=== PATIENT | female | born 1990 | race Caucasian/White ===

== ENCOUNTER 2020-12-23 15:54 | Emergency (ER) | payer SELFPAY ==
--- NOTE | ~2020-12-23 | US_ITS ---
EXAMINATION: US ABDOMEN LIMITED CLINICAL INFORMATION: Pain. COMPARISON: None TECHNIQUE: Real-time imaging of the right upper quadrant abdominal viscera. FINDINGS: PANCREAS: Normal. LIVER: Normal. The liver is normal in size. The liver contour is normal. Parenchymal echogenicity is normal. No focal hepatic lesion. There is no intrahepatic biliary duct dilatation seen. GALLBLADDER: Normal. The gallbladder is physiologically distended without evidence of stones, sludge, polyps, wall thickening or pericholecystic fluid. COMMON BILE DUCT: Normal in caliber measuring 0.2 cm in diameter. RIGHT KIDNEY: Normal. No hydronephrosis. No renal calculi or focal parenchymal lesions. The kidney measures 10 cm in maximum dimension. FREE FLUID: None. US/US abdomen limited IMPRESSION: Unremarkable right upper quadrant ultrasound. EXAMINATION: OBSTETRICAL ULTRASOUND, Limited CLINICAL INFORMATION: Second trimester evaluation pain. COMPARISON: None TECHNIQUE: Real time transabdominal imaging with color and M-mode Doppler. POSITION: Cephalic PLACENTA: Anterior without previa, grade 1, no abruption AMNIOTIC FLUID VOLUME: WITHIN NORMAL LIMITS MEASUREMENTS: biometric measurements are as follows: Biparietal Diameter: 5.39 cm (22 weeks 3 days) Occipital Frontal Diameter: 7.14 cm (23 weeks) Head Circumference: 19.46 cm (21 weeks 5 days) Abdominal Circumference: 17.2 cm (22 weeks 2 days) Femur Length: 3.91 cm (22 weeks 4 days) ESTIMATED WEIGHT: 488 grams which corresponds to an estimated gestational age of 22 weeks 2 days. Cervix appears normal with a length of 3.8 cm. Both ovaries appear unremarkable. IMPRESSION: 1. Single intrauterine gestation in cephalic position with anterior placenta. 2. No evidence for placental abruption.
--- NOTE | ~2020-12-23 | US_ITS ---
EXAMINATION: US ABDOMEN LIMITED CLINICAL INFORMATION: Pain. COMPARISON: None TECHNIQUE: Real-time imaging of the right upper quadrant abdominal viscera. FINDINGS: PANCREAS: Normal. LIVER: Normal. The liver is normal in size. The liver contour is normal. Parenchymal echogenicity is normal. No focal hepatic lesion. There is no intrahepatic biliary duct dilatation seen. GALLBLADDER: Normal. The gallbladder is physiologically distended without evidence of stones, sludge, polyps, wall thickening or pericholecystic fluid. COMMON BILE DUCT: Normal in caliber measuring 0.2 cm in diameter. RIGHT KIDNEY: Normal. No hydronephrosis. No renal calculi or focal parenchymal lesions. The kidney measures 10 cm in maximum dimension. FREE FLUID: None. US/US OB limited IMPRESSION: Unremarkable right upper quadrant ultrasound. EXAMINATION: OBSTETRICAL ULTRASOUND, Limited CLINICAL INFORMATION: Second trimester evaluation pain. COMPARISON: None TECHNIQUE: Real time transabdominal imaging with color and M-mode Doppler. POSITION: Cephalic PLACENTA: Anterior without previa, grade 1, no abruption AMNIOTIC FLUID VOLUME: WITHIN NORMAL LIMITS MEASUREMENTS: biometric measurements are as follows: Biparietal Diameter: 5.39 cm (22 weeks 3 days) Occipital Frontal Diameter: 7.14 cm (23 weeks) Head Circumference: 19.46 cm (21 weeks 5 days) Abdominal Circumference: 17.2 cm (22 weeks 2 days) Femur Length: 3.91 cm (22 weeks 4 days) ESTIMATED WEIGHT: 488 grams which corresponds to an estimated gestational age of 22 weeks 2 days. Cervix appears normal with a length of 3.8 cm. Both ovaries appear unremarkable. IMPRESSION: 1. Single intrauterine gestation in cephalic position with anterior placenta. 2. No evidence for placental abruption.
[2020-12-23 16:02] VITALS: BP 116/74; PULSE 101; RESP 18; TEMP 36.8; O2SAT 99; BMI 24.5
--- NOTE | 2020-12-23 18:35 | ED_ITS ---
HPI - Female Genitourinary General Chief complaint: Abdominal Pain Stated complaint: abd pain 5mths preg Time Seen by Provider: 12/23/20 18:34 Source: patient Mode of arrival: ambulatory Limitations: no limitations History of Present Illness HPI Narrative: Patient primi 5 months complaining of upper abdominal pain for last 2 months got worse in last 2 weeks also complaining of scant vaginal bleeding off and on for last 2 weeks and feel pain in the lower pelvic area does not feel hungry no urinary complaints nausea vomiting off and on no fever no chills Related Data Allergies Allergy/AdvReac Type Severity Reaction Status Date / Time No Known Allergies Allergy Verified 12/23/20 18:35 Review of Systems Review of Systems: Yes all other systems are reviewed and are negative COUNT INCLUDES THE [facility] Past Medical History Medical History No known health problems Social History Social History Alcohol intake: never Patient Tobacco Use Status: Never used Tobacco Use of substances other than those prescribed or required for medical reasons: No Advance Directives: No Advance Directives Information Provided: No Patient : Yes Physical Exam Vital Signs: Vital Signs: Last Vital Signs Temp 98.4 F 12/23/20 18:58 Pulse 79 12/23/20 18:58 Resp 18 12/23/20 18:58 BP 110/64 12/23/20 18:58 Pulse Ox 99 12/23/20 18:58 Body Mass Index 24.5 Appearance: Alert. Oriented X3. No acute distress. Eyes: PERRLA, No Nystagmus ENT: Pharynx normal. Oral Mucosa moist Neck: Normal inspection. Neck supple. CVS: Normal heart rate and rhythm. Pulses normal. Respiratory: No respiratory distress. Equal air entry bilateral, no wheezing/rales/rhonchi Abdomen: Soft and mild epigastric tenderness Burton's sign negative Bowel sounds are present, no mass palpable, no CVA tenderness Skin: Skin warm and dry. Normal skin color. Normal skin turgor. Extremities: No lower extremity edema. No calf tenderness Neuro: Oriented X 3. MDM - Female Genitourinary MDM Narrative Medical decision making narrative: Patient ultrasound negative for any acute pathology IUP with normal heart rate no gallstones will discharge patient home advised to follow with OBG Lab Data Attestation: I reviewed the patient's lab results. Result diagrams: 12/23/20 19:09 12/23/20 19:09 Labs: Lab Results 12/23/20 12/23/20 12/23/20 Range/Units 19:09 19:09 19:23 WBC 12.3 H (4.8-10.8) X10*3/uL RBC 4.35 (4.20-5.50) X10*6/uL Hgb 9.5 L (12.0-16.0) g/dl Hct 29.8 L (37-47) % MCV 68.5 L (80-98) fL MCH 21.8 L (27.0-33.0) pg MCHC 31.9 (31.0-35.0) g/dl RDW 17.0 H (11.0-16.0) % Plt Count 288 (160-400) X10*3/uL MPV 12.0 (9.4-12.3) fL Immature Gran % (Auto) 2.9 H (0.0-0.4) % Neut % (Auto) 72.9 (45-73) % Lymph % (Auto) 17.8 L (20-40) % [place] % (Auto) 5.8 (2-11) % Eos % (Auto) 0.4 (0-4) % Baso % (Auto) 0.2 (0-2) % Lymph # (Auto) 2.2 (1.2-4.9) X10*3/uL [place] # (Auto) 0.7 (0.1-1.2) X10*3/uL Eos # (Auto) 0.1 (0.0-0.4) X10*3/uL Baso # (Auto) 0.0 (0.0-0.2) X10*3/uL Abs Immat Gran (auto) 0.36 H (0.00-0.03) X10*3/uL Absolute Neuts (auto) 9.0 H (2.0-8.3) X10*3/uL Absolute Nucleated RBC 0.000 (0.0-0.012) X10*3/uL Nucleated RBC % (auto) 0.0 (0.0-0.2) /100WBC Sodium 137 (135-145) mmol/L Potassium 4.0 (3.3-5.1) mmol/L Chloride 103 (96-108) mmol/L Carbon Dioxide 25 (22-29) mmol/L Anion Gap 13 (12-20) BUN 5 L (9-16) mg/dL Creatinine 0.60 (0.5-1.4) mg/dL Estim Creat Clear Calc 120.4 Estimated GFR > 60 Random Glucose 111 (60-115) mg/dL Calcium 9.4 (8.4-10.2) mg/dL Total Bilirubin 0.3 (0.0-1.0) mg/dL Direct Bilirubin < 0.2 (0.0-0.5) mg/dL AST 16 (5-31) U/L ALT 13 (0-31) U/L Alkaline Phosphatase 84 (39-117) U/L Total Protein 6.3 L (6.5-8.0) g/dL Albumin 3.5 (3.5-5.0) g/dL Lipase 23 (8-78) U/L Urine Color Urine Appearance Urine pH (5.0-8.0) Ur Specific [place] (1.005-1.025) Urine Protein (NEG-TRACE) MG/DL Urine Glucose (UA) (NEG) MG/DL Urine Ketones (NEG) MG/DL Urine Blood (NEG) Urine Nitrite (NEG) Ur Leukocyte Esterase (NEG) Blood Type AB Positive 12/23/20 Range/Units 20:23 WBC (4.8-10.8) X10*3/uL RBC (4.20-5.50) X10*6/uL Hgb (12.0-16.0) g/dl Hct (37-47) % MCV (80-98) fL MCH (27.0-33.0) pg MCHC (31.0-35.0) g/dl RDW (11.0-16.0) % Plt Count (160-400) X10*3/uL MPV (9.4-12.3) fL Immature Gran % (Auto) (0.0-0.4) % Neut % (Auto) (45-73) % Lymph % (Auto) (20-40) % [place] % (Auto) (2-11) % Eos % (Auto) (0-4) % Baso % (Auto) (0-2) % Lymph # (Auto) (1.2-4.9) X10*3/uL [place] # (Auto) (0.1-1.2) X10*3/uL Eos # (Auto) (0.0-0.4) X10*3/uL Baso # (Auto) (0.0-0.2) X10*3/uL Abs Immat Gran (auto) (0.00-0.03) X10*3/uL Absolute Neuts (auto) (2.0-8.3) X10*3/uL Absolute Nucleated RBC (0.0-0.012) X10*3/uL Nucleated RBC % (auto) (0.0-0.2) /100WBC Sodium (135-145) mmol/L Potassium (3.3-5.1) mmol/L Chloride (96-108) mmol/L Carbon Dioxide (22-29) mmol/L Anion Gap (12-20) BUN (9-16) mg/dL Creatinine (0.5-1.4) mg/dL Estim Creat Clear Calc Estimated GFR Random Glucose (60-115) mg/dL Calcium (8.4-10.2) mg/dL Total Bilirubin (0.0-1.0) mg/dL Direct Bilirubin (0.0-0.5) mg/dL AST (5-31) U/L ALT (0-31) U/L Alkaline Phosphatase (39-117) U/L Total Protein (6.5-8.0) g/dL Albumin (3.5-5.0) g/dL Lipase (8-78) U/L Urine Color STRAW Urine Appearance HAZY Urine pH 7.0 (5.0-8.0) Ur Specific [place] 1.010 (1.005-1.025) Urine Protein NEG (NEG-TRACE) MG/DL Urine Glucose (UA) NEG (NEG) MG/DL Urine Ketones NEG (NEG) MG/DL Urine Blood NEG (NEG) Urine Nitrite NEG (NEG) Ur Leukocyte Esterase NEG (NEG) Blood Type Discharge Plan Discharge Clinical Impression: Gastritis Qualifiers: Gastritis type: superficial Chronicity: acute Gastritis bleeding: without bleeding Qualified Code(s): K29.00 - Acute gastritis without bleeding Qualifiers: Weeks of gestation: 20 weeks Qualified Code(s): Z3A.20 - 20 weeks gestation of Patient Disposition: Home, Self-Care Instructions: Gastritis (ED), at 19 to 22 Weeks (ED) Additional Instructions: Drink plenty of fluids Take Pepcid/Prilosec/Maalox for acid Tylenol for headache Follow-up with fire technician Referrals: Yong Leon MD [Physician] - 1 week
[2020-12-23 18:58] VITALS: BP 110/64; PULSE 79; RESP 18; TEMP 36.9; O2SAT 99
[2020-12-23] MEDS: 0.9 % Sodium Chloride 1,000 ML 999 ML IVCONT (19:15)
[2020-12-23 19:19] LABS: MANUAL DIFF FLAG NO
[2020-12-23 19:21] LABS: Basophils Percent Auto 0.2 % (0-2); Eosinophils Absolute Auto 0.1 X10*3/uL (0.0-0.4); Eosinophils Percent Auto 0.4 % (0-4); Hematocrit 29.8 % (37-47); Hemoglobin 9.5 g/dl (12.0-16.0); Imm Gran Abs Auto 0.36 X10*3/uL (0.00-0.03); Imm Gran Pct Auto 2.9 % (0.0-0.4); Lymphocytes Absolute Auto 2.2 X10*3/uL (1.2-4.9); Lymphocytes Percent Auto 17.8 % (20-40); Mean Corpuscular HGB Conc 31.9 g/dl (31.0-35.0); Mean Corpuscular Hemoglobin 21.8 pg (27.0-33.0); Mean Corpuscular Volume 68.5 fL (80-98); Monocytes Absolute Auto 0.7 X10*3/uL (0.1-1.2); Monocytes Percent Auto 5.8 % (2-11); Neutrophils Percent Auto 72.9 % (45-73); Platelet Count 288 X10*3/uL (160-400); Red Blood Count 4.35 X10*6/uL (4.20-5.50); White Blood Count 12.3 X10*3/uL (4.8-10.8)
[2020-12-23] MEDS: Famotidine/PF 20 MG/2 ML VIAL IVPUSH (19:24)
--- NOTE | 2020-12-23 19:27 | PC.NURSE ---
Pt alert and oriented x4, calm and cooperative. Pt states epigastrium burning pain 6/10 for the past month. Pt states vaginal pain for the past week. Pt states spotting blood and discharge. Pt denies N/V/D. Pt denies fevers/chills. IV inserted and intact infusing fluids. Vitals remain stable. Will continue to monitor.
[2020-12-23 19:37] LABS: Alanine Aminotransferase 13 U/L (0-31); Albumin Level 3.5 g/dL (3.5-5.0); Alkaline Phosphatase 84 U/L (39-117); Anion Gap 13 (12-20); Aspartate Amino Transferase 16 U/L (5-31); Bilirubin Direct < 0.2 mg/dL (0.0-0.5); Bilirubin Total 0.3 mg/dL (0.0-1.0); Blood Urea Nitrogen 5 mg/dL (9-16); Calcium 9.4 mg/dL (8.4-10.2); Carbon Dioxide 25 mmol/L (22-29); Chloride 103 mmol/L (96-108); Creatinine Clr Calc Pharmacy 120.4; Estimated Glomerular Filt Rate > 60; Glucose Random 111 mg/dL (60-115); Lipase 23 U/L (8-78); Sodium 137 mmol/L (135-145); Total Protein 6.3 g/dL (6.5-8.0)
[2020-12-23 20:30] LABS: Appearance Urine HAZY; Color Urine STRAW; Glucose Urine UA NEG (NEG); Leukocyte Esterase Urine NEG (NEG); Nitrite Urine NEG (NEG); Urine Blood NEG (NEG); Urine Ketones NEG (NEG); Urine Protein NEG (NEG-TRACE)
[2020-12-23 22:11] VITALS: BP 100/67; PULSE 85; RESP 18; TEMP 36.9; O2SAT 99
--- NOTE | 2020-12-23 22:12 | PC.NURSE ---
Pt alert and oriented x4, calm and cooperative. pt denies pain, N/V. Pt states she is ready for dc. Pt educated on ultrasounds results. IV removed. Vitals stable. Pt ambulated out to private car with .
== END 2020-12-23 22:17 | disposition home or self-care (01) ==
PROVIDERS: Emergency Provider Internal Medicine
DX: O99.612 Diseases of the digestive system complicating pregnancy, second trimester (principal); Z3A.20 20 weeks gestation of pregnancy; Z79.899 Other long term (current) drug therapy
CPT/HCPCS: 36415; 76705; 76815; 80048; 80076; 81003; 83690; 85025; 86900; 86901; 96361; 96374; 99284; 99285

== ENCOUNTER 2021-03-25 19:45 | Emergency (ER) | payer OTHER, SELFPAY ==
[2021-03-25 20:06] VITALS: BP 127/79; PULSE 103; RESP 20; TEMP 36.7; O2SAT 98; BMI 31.6
--- NOTE | 2021-03-25 22:06 | ED_ITS ---
HPI - Extremity Injury (Lower) General Chief Complaint: Extremity Injury, Lower Stated Complaint: Right ankle inj Time Seen by Provider: 03/25/21 22:01 Source: patient Mode of arrival: ambulatory History of Present Illness HPI Narrative: Patient 8 months to state her right ankle 2 days ago since then complaining of pain increased pain and swelling no other injuries Related Data Allergies Allergy/AdvReac Type Severity Reaction Status Date / Time No Known Allergies Allergy Verified 12/23/20 18:35 Review of Systems Review of Systems: Yes all other systems are reviewed and are negative [facility] Past Medical History Medical History No known health problems Social History Social History Alcohol intake: never Patient Tobacco Use Status: Never used Tobacco Advance Directives: No Advance Directives Information Provided: Yes Patient : Yes Physical Exam Vital Signs: Vital Signs: Last Vital Signs Temp 98.1 F 03/25/21 20:06 Pulse 103 H 03/25/21 20:06 Resp 20 03/25/21 20:06 BP 127/79 03/25/21 20:06 Pulse Ox 98 03/25/21 20:06 BMI result Body Mass Index 31.6 Const: General: comfortable and no acute distress HENMT: Head: Yes normocephalic and Yes atraumatic Extrem: Ankle/foot/toe images: 1. Tender right lateral malleolus with soft tissue swelling good range of movement neurovascular intact MDM - Extremity Injury (Lower) MDM Narrative Medical decision making narrative: Patient clinically has minor right ankles in as she is , no indication for x-ray will give her also boot and crutches Discharge Plan Discharge Clinical Impression: Ankle sprain and strain Patient Disposition: Home, Self-Care Instructions: Ankle Sprain (ED) Additional Instructions: Use crutches take Tylenol for pain Ortho boot for support
== END 2021-03-25 22:52 | disposition home or self-care (01) ==
PROVIDERS: Emergency Provider Internal Medicine
DX: O9A.213 Injury, poisoning and certain other consequences of external causes complicating pregnancy, third trimester (principal); S93.401A Sprain of unspecified ligament of right ankle, initial encounter; S96.911A Strain of unspecified muscle and tendon at ankle and foot level, right foot, initial encounter; Z3A.00 Weeks of gestation of pregnancy not specified; X58.XXXA Exposure to other specified factors, initial encounter; Y93.9 Activity, unspecified; Y92.9 Unspecified place or not applicable; Y99.9 Unspecified external cause status
CPT/HCPCS: 99283